=== PATIENT | female | born 1950 | race American Indian/Alaskan Native ===

== ENCOUNTER 2022-01-09 09:54 | Emergency (ER) | payer MEDICARE ==
--- NOTE | 2022-01-09 11:35 | Emergency Department Report ---
ED Extremity Problem HPI - General Chief complaint: Extremity Injury, Lower Stated complaint: LEFT LEG PAIN Time Seen by Provider: 01/09/22 11:25 Source: patient, EMS Mode of arrival: Stretcher Limitations: Physical Limitation - History of Present Illness Initial comments: This 71-year-old female presented to the ED with left-sided lower back pain radiating down to her thigh. Patient notes a history of sciatica and last episode was about 8 years ago where she had orthopedic to a cortisone injection in the spine which relieved it. She described pain as throbbing and aching and tingling starting on lower back and radiating down her thigh. Patient is unsure what flared it up. She denies any injury, trauma, abdominal pain, urinary symptoms or incontinence. MD Complaint: extremity pain, joint paint Location: left, lower extremity History of Same: Yes -: Yes arthralgia Radiation: proximal Severity scale (0 -10): 8 Quality: aching Consistency: constant Worsens with: weight bearing, walking Associated Symptoms: myalgias, arthralgias - Related Data Previous Rx's Medication Instructions Recorded Last Taken Type Cyclobenzaprine [Flexeril] 10 mg PO QHS PRN #20 01/09/[address] [Voltaren Dr] 75 mg PO BID #30 tablet 01/09/22 Unknown Rx Gabapentin 100 mg PO Q8HR #30 capsule 01/09/22 Unknown Rx Allergies Allergy/AdvReac Type Severity Reaction Status Date / Time No Known Allergies Allergy Unverified 01/09/22 10:24 ED Review of Systems ROS: Stated complaint: LEFT LEG PAIN Other details as noted in HPI Comment: All other systems reviewed and negative Constitutional: denies: chills, fever Eyes: denies: eye pain, eye discharge, vision change ENT: denies: ear pain, throat pain Respiratory: denies: cough, shortness of breath, wheezing Cardiovascular: denies: chest pain, palpitations Endocrine: no symptoms reported Gastrointestinal: denies: abdominal pain, nausea, diarrhea Genitourinary: denies: urgency, dysuria, discharge Musculoskeletal: denies: back pain, joint swelling, arthralgia Skin: denies: rash, lesions Neurological: other (Straight leg raise positive.). denies: headache, weakness, numbness, paresthesias Psychiatric: denies: anxiety, depression Hematological/Lymphatic: denies: easy bleeding, easy bruising ED Past Medical Hx - Medications Home Medications: Home Medications Medication Instructions Recorded Confirmed Last Taken Type Cyclobenzaprine [Flexeril] 10 mg PO QHS PRN #20 01/09/[address] [Voltaren Dr] 75 mg PO BID #30 tablet 01/09/22 Unknown Rx Gabapentin 100 mg PO Q8HR #30 capsule 01/09/22 Unknown Rx ED Physical Exam - General Limitations: Physical Limitation General appearance: alert, in no apparent distress - Head Head exam: Present: atraumatic, normocephalic - Eye Eye exam: Present: normal appearance - ENT ENT exam: Present: mucous membranes moist - Neck Neck exam: Present: normal inspection - Respiratory Respiratory exam: Present: normal lung sounds bilaterally. Absent: respiratory distress - Cardiovascular Cardiovascular Exam: Present: regular rate, normal rhythm. Absent: systolic murmur, diastolic murmur, rubs, gallop - GI/Abdominal GI/Abdominal exam: Present: soft, normal bowel sounds - Extremities Exam Extremities exam: Present: normal inspection - Back Exam Back exam: Present: normal inspection - Neurological Exam Neurological exam: Present: alert, oriented X3 - Psychiatric Psychiatric exam: Present: normal affect, normal mood - Skin Skin exam: Present: warm, dry, intact, normal color. Absent: rash ED Course Vital Signs 01/09/22 01/09/22 10:18 15:41 Temperature 98.4 F 98.4 F Pulse Rate 100 H 88 Respiratory 18 16 Rate Blood Pressure 157/78 139/75 [Left] O2 Sat by Pulse 99 100 Oximetry ED Medical Decision Making - Radiology Data Radiology results: report reviewed CT LUMBAR SPINE WITHOUT CONTRAST INDICATION: back pain/injury. TECHNIQUE: Axial imaging performed through the lumbar spine without the use of contrast. Sagittal and coronal reconstructed images were also reviewed. All CT scans at this location are performed using CT dose reduction for ALARA by means of automated exposure control. COMPARISON: None FINDINGS: Alignment: Spinal alignment is normal. Bones: There is no acute osseous abnormality. 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 There appears to be a prominent posterior bulging disc at L4-5 as well. The remaining levels are within normal limits. Soft tissues: No acute or significant incidental soft tissue abnormality. IMPRESSION: No evidence for acute injury. Degenerative changes at L4-5. Prominent bulging disc at L4-5. Signer Name: Michel Bellamy Jr, MD Signed: 01/09/2022 2:10 PM Workstation Name: [id number] Transcribed By: TTR Dictated By: MICHEL BELLAMY JR, MD Electronically Authenticated By: MICHEL BELLAMY JR, MD Signed Date/Time: 01/09/22 1410 Critical care attestation.: If time is entered above; I have spent that time in minutes in the direct care of this critically ill patient, excluding procedure time. ED Disposition Clinical Impression: Lumbago with sciatica, left side, Bulging lumbar disc Disposition: HOME / SELF CARE / HOMELESS Is pt being admited?: No Does the pt Need Aspirin: No Condition: Stable Instructions: Radicular Pain, Sciatica, Degenerative Disk Disease Additional Instructions: Make sure to follow up with the primary care physician as discussed. Take all your medications as you've been prescribed. If you have any worsening symptoms or develop new symptoms please return to ED immediately. Prescriptions: Cyclobenzaprine [Flexeril] 10 mg PO QHS PRN #20 PRN Reason: Muscle Spasm Gabapentin 100 mg PO Q8HR #[address] [Voltarejamee Boswell] 75 mg PO BID #30 tablet Referrals: GRETTA JAIME MD [Primary Care Provider] - 3-5 Days [facility] [Provider Group] - 3-5 Days Forms: Work/School Release Form(ED) Time of Disposition: 12:44
[2022-01-09] MEDS ORDERED: dexAMETHasone 20 MG/5 ML VIAL IM ONE (11:37)
[2022-01-09] MEDS ORDERED: ACETAMINOPHEN W/CODEINE 300-30 MG TAB PO ONE (11:38)
--- NOTE | 2022-01-09 14:14 | Cat Scan Report ---
CT LUMBAR SPINE WITHOUT CONTRAST INDICATION: back pain/injury. TECHNIQUE: Axial imaging performed through the lumbar spine without the use of contrast. Sagittal a nd coronal reconstructed images were also reviewed. All CT scans at this location are performed usin g CT dose reduction for ALARA by means of automated exposure control. COMPARISON: None FINDINGS: Alignment: Spinal alignment is normal. Bones: There is no acute osseous abnormality. 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 T here appears to be a prominent posterior bulging disc at L4-5 as well. The remaining levels are withi n normal limits. Soft tissues: No acute or significant incidental soft tissue abnormality. IMPRESSION: No evidence for acute injury. Degenerative changes at L4-5. Prominent bulging disc at L4 -5. Signer Name: Michel Soto Jr, MD Signed: 01/09/2022 2:10 PM Workstation Name: [id number]
[2022-01-09 15:45] VITALS: BP 139/75
== END 2022-01-09 15:41 | disposition home or self-care (01) ==
LOC: ED 09:54
DX: M54.41 Lumbago with sciatica, right side (principal); M51.26 Other intervertebral disc displacement, lumbar region; Z79.899 Other long term (current) drug therapy
CPT/HCPCS: 72131; 96372; 99284; J1100